=== PATIENT | male | born 1975 | race American Indian/Alaskan Native ===

== ENCOUNTER 2024-11-10 08:08 | Inpatient (IN) | payer BC, OTHER ==
[2024-11-10] MEDS ORDERED: Sodium Chloride 0.9% 10 ML Syringe FLUSH PRN (08:35)
[2024-11-10] MEDS ORDERED: Sodium Chloride 0.9% 2.5 ML Syringe FLUSH PRN (08:35)
[2024-11-10 09:04] LABS: HEMATOCRIT 39.2 % (42.0-52.0); HEMOGLOBIN 13.7 g/dL (14.0-18.0); MEAN CORPUSCULAR HEMOGLOBIN 31.4 pg (28.0-32.0); MEAN CORPUSCULAR HGB CONC 34.9 g/dL (32.0-36.0); MEAN CORPUSCULAR VOLUME 89.9 fL (83.0-99.0); MEAN PLATELET VOLUME 10.8 fL (9.4-12.4); PLATELET COUNT,PLT 305 K/uL (150-400); RED BLOOD CELL COUNT 4.36 M/uL (4.52-5.90); WHITE BLOOD CELL COUNT,WBC 23.58 K/uL (3.9-11.3)
[2024-11-10 09:09] LABS: PH,VENOUS 7.35 (7.31-7.41)
[2024-11-10] MEDS: ceFAZolin 2 GM in Sodium Chloride 0.9% 50 ML IV ONE (09:15)
[2024-11-10 09:35] LABS: LACTIC ACID 1.6 mmol/L (0.4-2.0)
[2024-11-10 09:39] LABS: A/G RATIO 0.2 (0.9-1.6); ALBUMIN 1.2 g/dL (3.4-5.0); BILIRUBIN TOTAL 0.6 mg/dL (0.2-1.0); CALCIUM 10.2 mg/dL (8.5-10.1); CARBON DIOXIDE,CO2 16.8 mmol/L (21.0-32.0); CREATININE 1.6 mg/dL (0.8-1.3); EST CRCL DRUG DOSING (CG) 63.12 mL/min; POTASSIUM,K 4.1 mmol/L (3.5-5.1); PROTEIN TOTAL,TP 6.8 g/dL (6.4-8.2)
[2024-11-10] MEDS: Insulin Regular in 0.9 % NACL 100 ML IV SCH (10:05)
[2024-11-10 10:26] LABS: BAND ABSOLUTE MAN 0.47; BAND PERCENT MAN 2 %; LYMPHOCYTES ABSOLUTE MAN 0.94 K/uL (1.00-4.80); LYMPHOCYTES PERCENT MAN 4 % (24-44); MONOCYTES ABSOLUTE MAN 1.65 K/uL (0.00-0.80); MONOCYTES PERCENT MAN 7 % (0-8); SEG NEUTROPHILS ABSOLUTE MAN 20.51 K/uL (1.80-7.70); SEG NEUTROPHILS PERCENT MAN 87 % (41-71)
[2024-11-10] MEDS ORDERED: Dextrose 5%-0.45% NaCl 1,000 ML IV PRN (11:21)
[2024-11-10] MEDS ORDERED: Sodium Chloride 0.9% 2,000 ML IV PRN (11:33)
[2024-11-10] MEDS ORDERED: Sennosides/Docusate Sodium 50-8.6 MG Tab PO PRN (11:44)
[2024-11-10] MEDS ORDERED: Polyethylene Glycol 3350 Powder 17 GM Packet PO PRN (11:44)
[2024-11-10] MEDS ORDERED: Melatonin 3 MG Tab PO PRN (11:44)
[2024-11-10] MEDS ORDERED: Ondansetron 4 MG/2 ML SDV IVPUSH PRN (11:44)
[2024-11-10] MEDS ORDERED: Insulin Regular in 0.9 % NACL 100 ML IV SCH (12:00)
[2024-11-10 12:37] LABS: HEMOGLOBIN A1C 11.3 %
[2024-11-10] MEDS: Sodium Chloride 0.9% 500 ML IV SCH (12:37)
[2024-11-10] MEDS: Pantoprazole 40 MG in Sodium Chloride 0.9% 10 ML IVPUSH SCH (12:38)
[2024-11-10] MEDS: Enoxaparin 40 MG/0.4 ML Syringe SUBCUT SCH (12:38)
[2024-11-10] MEDS: VANCOmycin 2 GM/400 ML 2 GM in Premix Bag 1 BAG IV ONE (12:39)
[2024-11-10 12:45] LABS: CALCIUM 9.7 mg/dL (8.5-10.1); CARBON DIOXIDE,CO2 22.4 mmol/L (21.0-32.0); CREATININE 1.5 mg/dL (0.8-1.3); EST CRCL DRUG DOSING (CG) 67.32 mL/min; MAGNESIUM 2.1 mg/dL (1.8-2.4); PHOSPHORUS 3.2 mg/dL (2.6-4.7); POTASSIUM,K 3.6 mmol/L (3.5-5.1)
[2024-11-10 16:04] LABS: CALCIUM 9.4 mg/dL (8.5-10.1); CARBON DIOXIDE,CO2 20.8 mmol/L (21.0-32.0); CREATININE 1.3 mg/dL (0.8-1.3); EST CRCL DRUG DOSING (CG) 77.68 mL/min; POTASSIUM,K 3.7 mmol/L (3.5-5.1)
[2024-11-10] MEDS: D5 1/2 NS w/ 40 mEq/L KCl 1,000 ML IV SCH (16:14)
[2024-11-10 16:41] LABS: APPEARANCE,URINE CLEAR; BILIRUBIN,URINE NEGATIVE (NEGATIVE); COLOR,URINE YELLOW; GLUCOSE,URINE 500 mg/dL (NEGATIVE); KETONES,URINE 15 mg/dL (NEGATIVE); LEUKOCYTE ESTERASE,URINE NEGATIVE (NEGATIVE); NITRITE,URINE NEGATIVE (NEGATIVE); OCCULT BLOOD,URINE MODERATE (NEGATIVE); PROTEIN,URINE 100 mg/dL (NEGATIVE); UROBILINOGEN,URINE 0.2 EU/dL (<2.0)
[2024-11-10 16:50] LABS: AMPHETAMINES SCREEN, URINE NEGATIVE (CUTOFF=500); BARBITURATE SCREEN,URINE NEGATIVE (CUTOFF=200); BENZODIAZEPINES SCREEN,URINE NEGATIVE (CUTOFF=150); BUPRENORPHINE SCREEN,URINE NEGATIVE (CUTOFF=10); METHADONE SCREEN, URINE NEGATIVE (CUTOFF=200); METHAMPHETAMINES SCREEN, URINE NEGATIVE (CUTOFF=500); OXYCODONE SCREEN,URINE NEGATIVE (CUT0FF=100); PCP SCREEN,URINE NEGATIVE (CUTOFF=25); THC SCREEN,URINE 20 NG/ML NEGATIVE (CUTOFF=50)
[2024-11-10 17:00] LABS: BACTERIA,URINE 2+ (NEGATIVE); EPITHELIAL CELLS,URINE FEW (NONE-FEW)
[2024-11-10] MEDS: ceFAZolin 2 GM in Sodium Chloride 0.9% 50 ML IV SCH (17:18)
[2024-11-10] MEDS: Lisinopril 10 MG Tab PO SCH (17:18)
[2024-11-10] MEDS ORDERED: Glucagon,Human Recombinant 1 MG Vial IM PRN (17:22)
[2024-11-10] MEDS ORDERED: 50% Dextrose in Water 50 ML Syringe IVPUSH PRN (17:22)
[2024-11-10] MEDS: Acetaminophen 325 MG Tab PO PRN (19:31)
[2024-11-10 20:04] LABS: CARBON DIOXIDE,CO2 20.7 mmol/L (21.0-32.0); CREATININE 1.4 mg/dL (0.8-1.3); EST CRCL DRUG DOSING (CG) 72.13 mL/min; POTASSIUM,K 3.7 mmol/L (3.5-5.1)
[2024-11-10] MEDS: Ibuprofen 600 MG Tab PO PRN (20:28)
[2024-11-10] MEDS: oxyCODONE 5 MG/5 ML Cup PO ONE (22:46)
[2024-11-10] MEDS: Insulin Glargine,Hum.Rec.Anlog 100 UNIT/ML 3 ML Pen SUBCUT SCH (22:59)
[2024-11-11] MEDS: VANCOmycin 1.5 GM in Sodium Chloride 0.9% 250 ML IV SCH
[2024-11-11 00:01] LABS: CALCIUM 9.1 mg/dL (8.5-10.1); CARBON DIOXIDE,CO2 23.6 mmol/L (21.0-32.0); CREATININE 1.5 mg/dL (0.8-1.3); EST CRCL DRUG DOSING (CG) 67.32 mL/min; POTASSIUM,K 3.3 mmol/L (3.5-5.1)
[2024-11-11] MEDS ORDERED: VANCOmycin 1 GM in Sodium Chloride 0.9% 250 ML IV SCH (01:00)
[2024-11-11 04:08] LABS: CALCIUM 8.8 mg/dL (8.5-10.1); CARBON DIOXIDE,CO2 21.5 mmol/L (21.0-32.0); CREATININE 1.5 mg/dL (0.8-1.3); EST CRCL DRUG DOSING (CG) 67.32 mL/min; POTASSIUM,K 3.6 mmol/L (3.5-5.1)
[2024-11-11 08:57] LABS: CALCIUM 8.9 mg/dL (8.5-10.1); CARBON DIOXIDE,CO2 20.6 mmol/L (21.0-32.0); CREATININE 1.3 mg/dL (0.8-1.3); EST CRCL DRUG DOSING (CG) 77.68 mL/min; POTASSIUM,K 3.8 mmol/L (3.5-5.1)
[2024-11-11 10:45] LABS: HEMATOCRIT 33.5 % (42.0-52.0); MEAN CORPUSCULAR HEMOGLOBIN 32.2 pg (28.0-32.0); MEAN CORPUSCULAR HGB CONC 35.8 g/dL (32.0-36.0); MEAN CORPUSCULAR VOLUME 89.8 fL (83.0-99.0); MEAN PLATELET VOLUME 11.1 fL (9.4-12.4); PLATELET COUNT,PLT 277 K/uL (150-400); RED BLOOD CELL COUNT 3.73 M/uL (4.52-5.90); WHITE BLOOD CELL COUNT,WBC 25.33 K/uL (3.9-11.3)
[2024-11-11] MEDS: Insulin Glargine,Hum.Rec.Anlog 100 UNIT/ML 3 ML Pen SUBCUT SCH (11:16)
[2024-11-11 11:25] LABS: BAND ABSOLUTE MAN 0.76; BAND PERCENT MAN 3 %; LYMPHOCYTES ABSOLUTE MAN 1.27 K/uL (1.00-4.80); LYMPHOCYTES PERCENT MAN 5 % (24-44); MONOCYTES ABSOLUTE MAN 2.03 K/uL (0.00-0.80); MONOCYTES PERCENT MAN 8 % (0-8); SEG NEUTROPHILS ABSOLUTE MAN 21.28 K/uL (1.80-7.70); SEG NEUTROPHILS PERCENT MAN 84 % (41-71)
[2024-11-11] MEDS: oxyCODONE 5 MG Tab PO PRN (11:27)
[2024-11-11] MEDS: Insulin Aspart 100 Units/ML 3 ML Pen SUBCUT SCH (13:33)
[2024-11-11 13:52] LABS: CALCIUM 8.9 mg/dL (8.5-10.1); CARBON DIOXIDE,CO2 21.5 mmol/L (21.0-32.0); CREATININE 1.3 mg/dL (0.8-1.3); EST CRCL DRUG DOSING (CG) 77.68 mL/min; POTASSIUM,K 4.2 mmol/L (3.5-5.1)
[2024-11-11] MEDS: VANCOmycin 1 GM in Sodium Chloride 0.9% 250 ML IV SCH (14:13)
[2024-11-11] MEDS: Insulin Glargine,Hum.Rec.Anlog 100 UNIT/ML 3 ML Pen SUBCUT ONE (20:55)
[2024-11-12 05:47] LABS: HEMATOCRIT 35.7 % (42.0-52.0); HEMOGLOBIN 12.3 g/dL (14.0-18.0); MEAN CORPUSCULAR HEMOGLOBIN 31.3 pg (28.0-32.0); MEAN CORPUSCULAR HGB CONC 34.5 g/dL (32.0-36.0); MEAN CORPUSCULAR VOLUME 90.8 fL (83.0-99.0); MEAN PLATELET VOLUME 11.2 fL (9.4-12.4); PLATELET COUNT,PLT 258 K/uL (150-400); RED BLOOD CELL COUNT 3.93 M/uL (4.52-5.90); WHITE BLOOD CELL COUNT,WBC 21.64 K/uL (3.9-11.3)
[2024-11-12 06:23] LABS: A/G RATIO 0.2 (0.9-1.6); BILIRUBIN TOTAL 0.4 mg/dL (0.2-1.0); CALCIUM 8.3 mg/dL (8.5-10.1); CARBON DIOXIDE,CO2 18.5 mmol/L (21.0-32.0); CREATININE 1.6 mg/dL (0.8-1.3); EST CRCL DRUG DOSING (CG) 63.12 mL/min; POTASSIUM,K 3.9 mmol/L (3.5-5.1); PROTEIN TOTAL,TP 6.2 g/dL (6.4-8.2)
[2024-11-12 06:44] LABS: BAND ABSOLUTE MAN 0.65; BAND PERCENT MAN 3 %; EOSINOPHILS ABSOLUTE MAN 0.22 K/uL (0.00-0.45); EOSINOPHILS PERCENT MAN 1 % (0-6); LYMPHOCYTES ABSOLUTE MAN 1.08 K/uL (1.00-4.80); LYMPHOCYTES PERCENT MAN 5 % (24-44); MONOCYTES ABSOLUTE MAN 1.95 K/uL (0.00-0.80); MONOCYTES PERCENT MAN 9 % (0-8); SEG NEUTROPHILS ABSOLUTE MAN 17.74 K/uL (1.80-7.70); SEG NEUTROPHILS PERCENT MAN 82 % (41-71)
[2024-11-12] MEDS: Benzonatate 100 MG Cap PO PRN (14:01)
[2024-11-12] MEDS: Ascorbic Acid 500 MG Tab PO SCH (14:05)
[2024-11-12] MEDS: Cholecalciferol (Vitamin D3) 25 MCG Tab PO SCH (14:05)
[2024-11-12] MEDS: Metoprolol Tartrate 5 MG/5 ML SDV IVPUSH ONE (16:45)
[2024-11-12] MEDS: Insulin Glargine,Hum.Rec.Anlog 100 UNIT/ML 3 ML Pen SUBCUT SCH (17:46)
[2024-11-12] MEDS: Sodium Chloride 0.9% 500 ML IV ONE (19:40)
[2024-11-12] MEDS: Potassium Chloride 10 MEQ in Premix Bag 1 BAG IV SCH (19:40)
[2024-11-12] MEDS: Sodium Chloride 0.9% 1,000 ML IV ONE (19:45)
[2024-11-12] MEDS ORDERED: 50% Dextrose in Water 50 ML Syringe IVPUSH PRN ×2 (20:09→20:22)
[2024-11-12] MEDS ORDERED: Glucagon,Human Recombinant 1 MG Vial IM PRN ×2 (20:09→20:22)
[2024-11-12] MEDS: Insulin Aspart 100 Units/ML 3 ML Pen SUBCUT ONE ×2 (20:20→20:56)
[2024-11-12 20:38] LABS: CALCIUM 7.9 mg/dL (8.5-10.1); CARBON DIOXIDE,CO2 17.2 mmol/L (21.0-32.0); CREATININE 1.6 mg/dL (0.8-1.3); EST CRCL DRUG DOSING (CG) 63.12 mL/min; POTASSIUM,K 4.4 mmol/L (3.5-5.1)
[2024-11-13 06:39] LABS: BASOPHILS ABSOLUTE AUTO 0.08 K/uL (0.00-0.20); BASOPHILS PERCENT AUTO 0.3 % (0.0-1.0); EOSINOPHILS ABSOLUTE AUTO 0.14 K/uL (0.00-0.45); EOSINOPHILS PERCENT AUTO 0.6 % (0.0-6.0); HEMATOCRIT 32.4 % (42.0-52.0); HEMOGLOBIN 11.3 g/dL (14.0-18.0); IMMATURE GRAN ABSOLUTE AUTO 0.33 K/uL (0.00-0.05); IMMATURE GRAN PERCENT AUTO 1.4 % (0.0-0.4); LYMPHOCYTES ABSOLUTE AUTO 1.09 K/uL (1.00-4.80); LYMPHOCYTES PERCENT AUTO 4.7 % (24.0-44.0); MEAN CORPUSCULAR HEMOGLOBIN 31.7 pg (28.0-32.0); MEAN CORPUSCULAR HGB CONC 34.9 g/dL (32.0-36.0); MEAN CORPUSCULAR VOLUME 90.8 fL (83.0-99.0); MEAN PLATELET VOLUME 10.9 fL (9.4-12.4); MONOCYTES ABSOLUTE AUTO 1.39 K/uL (0.00-0.80); NEUTROPHILS ABSOLUTE AUTO 20.26 K/uL (1.80-7.70); PLATELET COUNT,PLT 274 K/uL (150-400); RED BLOOD CELL COUNT 3.57 M/uL (4.52-5.90); WHITE BLOOD CELL COUNT,WBC 23.29 K/uL (3.9-11.3)
[2024-11-13 07:06] LABS: A/G RATIO 0.2 (0.9-1.6); BILIRUBIN TOTAL 0.4 mg/dL (0.2-1.0); CALCIUM 7.7 mg/dL (8.5-10.1); CARBON DIOXIDE,CO2 17.6 mmol/L (21.0-32.0); CREATININE 1.8 mg/dL (0.8-1.3); EST CRCL DRUG DOSING (CG) 56.1 mL/min; POTASSIUM,K 4.2 mmol/L (3.5-5.1); PROTEIN TOTAL,TP 6.2 g/dL (6.4-8.2)
[2024-11-13] MEDS: Insulin Aspart 100 Units/ML 3 ML Pen SUBCUT SCH ×2 (07:59→12:06)
[2024-11-13] MEDS: Piperacillin/Tazobactam 4.5 GM in Sodium Chloride 0.9% 100 ML IV SCH (11:02)
[2024-11-13] MEDS: Sodium Chloride 0.9% 1,000 ML IV SCH ×2 (11:07→19:54)
[2024-11-13 18:07] LABS: CALCIUM 7.5 mg/dL (8.5-10.1); CARBON DIOXIDE,CO2 15.7 mmol/L (21.0-32.0); CREATININE 1.8 mg/dL (0.8-1.3); EST CRCL DRUG DOSING (CG) 56.1 mL/min; POTASSIUM,K 4.2 mmol/L (3.5-5.1)
[2024-11-13] MEDS: Sodium Chloride 0.9% 1,000 ML IV ONE (18:49)
[2024-11-13 21:14] LABS: CALCIUM 7.4 mg/dL (8.5-10.1); CARBON DIOXIDE,CO2 16.5 mmol/L (21.0-32.0); CREATININE 1.7 mg/dL (0.8-1.3); EST CRCL DRUG DOSING (CG) 59.4 mL/min; MAGNESIUM 2.1 mg/dL (1.8-2.4); PHOSPHORUS 2.4 mg/dL (2.6-4.7)
[2024-11-13] MEDS: VANCOmycin 1 GM in Sodium Chloride 0.9% 250 ML IV SCH (21:59)
[2024-11-13] MEDS: Sodium Chloride 0.9% 1,000 ML IV STA (23:38)
[2024-11-14 06:29] LABS: BASOPHILS PERCENT AUTO 0.4 % (0.0-1.0); EOSINOPHILS ABSOLUTE AUTO 0.09 K/uL (0.00-0.45); EOSINOPHILS PERCENT AUTO 0.4 % (0.0-6.0); HEMATOCRIT 30.5 % (42.0-52.0); HEMOGLOBIN 10.6 g/dL (14.0-18.0); IMMATURE GRAN ABSOLUTE AUTO 0.37 K/uL (0.00-0.05); IMMATURE GRAN PERCENT AUTO 1.5 % (0.0-0.4); LYMPHOCYTES PERCENT AUTO 4.5 % (24.0-44.0); MEAN CORPUSCULAR HEMOGLOBIN 31.5 pg (28.0-32.0); MEAN CORPUSCULAR HGB CONC 34.8 g/dL (32.0-36.0); MEAN CORPUSCULAR VOLUME 90.5 fL (83.0-99.0); MEAN PLATELET VOLUME 11.2 fL (9.4-12.4); MONOCYTES ABSOLUTE AUTO 1.49 K/uL (0.00-0.80); NEUTROPHILS ABSOLUTE AUTO 21.54 K/uL (1.80-7.70); NEUTROPHILS PERCENT AUTO 87.2 % (41.0-71.0); PLATELET COUNT,PLT 302 K/uL (150-400); RED BLOOD CELL COUNT 3.37 M/uL (4.52-5.90); WHITE BLOOD CELL COUNT,WBC 24.69 K/uL (3.9-11.3)
[2024-11-14 07:03] LABS: A/G RATIO 0.2 (0.9-1.6); ALBUMIN 0.9 g/dL (3.4-5.0); BILIRUBIN TOTAL 0.4 mg/dL (0.2-1.0); CALCIUM 7.2 mg/dL (8.5-10.1); CARBON DIOXIDE,CO2 18.6 mmol/L (21.0-32.0); CREATININE 1.7 mg/dL (0.8-1.3); EST CRCL DRUG DOSING (CG) 59.4 mL/min; POTASSIUM,K 3.8 mmol/L (3.5-5.1); PROTEIN TOTAL,TP 5.9 g/dL (6.4-8.2)
[2024-11-14 10:33] LABS: AMPHETAMINES SCREEN, URINE NEGATIVE (CUTOFF=500); BARBITURATE SCREEN,URINE NEGATIVE (CUTOFF=200); BENZODIAZEPINES SCREEN,URINE NEGATIVE (CUTOFF=150); BUPRENORPHINE SCREEN,URINE NEGATIVE (CUTOFF=10); METHADONE SCREEN, URINE NEGATIVE (CUTOFF=200); METHAMPHETAMINES SCREEN, URINE NEGATIVE (CUTOFF=500); OXYCODONE SCREEN,URINE PRESUMPTIVE POSITIVE (CUT0FF=100); PCP SCREEN,URINE NEGATIVE (CUTOFF=25); THC SCREEN,URINE 20 NG/ML NEGATIVE (CUTOFF=50)
[2024-11-14] MEDS: Phosphorus #1 250 MG Tab PO SCH (11:00)
[2024-11-14 16:35] VITALS: BP 134/78; PULSE 95
== END 2024-11-14 15:41 | disposition home or self-care (01) | DRG 720 ==
LOC: MW.ED 08:08 → MW.ICU 11:09 → MW.MS 11-12 08:23
PROVIDERS: ADMIT Internal Medicine; ATTEND Internal Medicine
DX: A41.9 Sepsis, unspecified organism (principal); E10.10 Type 1 diabetes mellitus with ketoacidosis without coma; L03.114 Cellulitis of left upper limb; L03.115 Cellulitis of right lower limb; I10 Essential (primary) hypertension; L03.113 Cellulitis of right upper limb; S80.821A Blister (nonthermal), right lower leg, initial encounter; Z79.4 Long term (current) use of insulin; Z79.899 Other long term (current) drug therapy
CPT/HCPCS: 36415; 51798; 70450; 70450-26; 71045; 71045-26; 73700-26-RT; 73700-RT; 80048; 80053; 80202; 80305-QW; 80307; 81001; 82009; 82803; 82947; 83036; 83605; 83690; 83735; 83880; 84100; 84484; 85025; 87040; 87070; 87075; 87077; 87147; 87186; 87205; 87428-QW; 93005; 93010; 93970; 93970-26; 96361; 96365; 99285-25; 99291; A9270-GY; J0690; J1650; J1815; J1815-GY; J2470; J2543; J3371; J3372; J3480; J3490; J7030; J7040; J7050

== ENCOUNTER 2025-01-14 10:52 | Inpatient (IN) | payer BC, OTHER ==
[2025-01-14 11:46] LABS: BASOPHILS ABSOLUTE AUTO 0.08 K/uL (0.00-0.20); BASOPHILS PERCENT AUTO 0.6 % (0.0-1.0); EOSINOPHILS ABSOLUTE AUTO 0.37 K/uL (0.00-0.45); EOSINOPHILS PERCENT AUTO 2.9 % (0.0-6.0); HEMATOCRIT 25.7 % (42.0-52.0); HEMOGLOBIN 8.7 g/dL (14.0-18.0); IMMATURE GRAN ABSOLUTE AUTO 0.08 K/uL (0.00-0.05); IMMATURE GRAN PERCENT AUTO 0.6 % (0.0-0.4); LYMPHOCYTES ABSOLUTE AUTO 1.03 K/uL (1.00-4.80); MEAN CORPUSCULAR HEMOGLOBIN 30.5 pg (28.0-32.0); MEAN CORPUSCULAR HGB CONC 33.9 g/dL (32.0-36.0); MEAN CORPUSCULAR VOLUME 90.2 fL (83.0-99.0); MEAN PLATELET VOLUME 9.1 fL (9.4-12.4); MONOCYTES ABSOLUTE AUTO 1.21 K/uL (0.00-0.80); MONOCYTES PERCENT AUTO 9.4 % (0.0-8.0); NEUTROPHILS ABSOLUTE AUTO 10.06 K/uL (1.80-7.70); NEUTROPHILS PERCENT AUTO 78.5 % (41.0-71.0); NRBC ABSOLUTE 0.04 K/uL (0.00-0.02); NRBC PERCENT 0.3 /100WBC (0.0-0.2); PLATELET COUNT,PLT 296 K/uL (150-400); RED BLOOD CELL COUNT 2.85 M/uL (4.52-5.90); WHITE BLOOD CELL COUNT,WBC 12.83 K/uL (3.9-11.3)
[2025-01-14] MEDS: Sodium Chloride 0.9% 1,000 ML IV ONE (11:50)
[2025-01-14] MEDS: methylPREDNISolone Sodium Succinate 125 MG/2 ML SDV IVPUSH ONE (11:51)
[2025-01-14] MEDS: Albuterol/Ipratropium 3.0-0.5 MG/3 ML Neb Soln NEB ONE (11:51)
[2025-01-14 12:12] LABS: A/G RATIO 0.6 (0.9-1.6); ALBUMIN 2.8 g/dL (3.4-5.0); BILIRUBIN DIRECT 0.1 mg/dL (0.0-0.5); BILIRUBIN INDIRECT 0.3; BILIRUBIN TOTAL 0.4 mg/dL (0.2-1.0); CALCIUM 8.8 mg/dL (8.5-10.1); CARBON DIOXIDE,CO2 24.2 mmol/L (21.0-32.0); CREATININE 1.1 mg/dL (0.8-1.3); EST CRCL DRUG DOSING (CG) 90.8 mL/min; POTASSIUM,K 3.6 mmol/L (3.5-5.1); PROTEIN TOTAL,TP 7.6 g/dL (6.4-8.2)
[2025-01-14] MEDS: cefTRIAXone 2 GM in Sodium Chloride 0.9% 50 ML IV ONE (13:03)
[2025-01-14] MEDS: Azithromycin 500 MG in Sodium Chloride 0.9% 250 ML IV ONE (14:28)
[2025-01-14] MEDS ORDERED: 50% Dextrose in Water 50 ML Syringe IVPUSH PRN (16:08)
[2025-01-14] MEDS ORDERED: Acetaminophen 325 MG Tab PO PRN (16:08)
[2025-01-14] MEDS ORDERED: Glucagon,Human Recombinant 1 MG Vial IM PRN (16:08)
[2025-01-14] MEDS ORDERED: Polyethylene Glycol 3350 Powder 17 GM Packet PO PRN (16:08)
[2025-01-14] MEDS ORDERED: Ondansetron 4 MG Tab.DIS PO PRN (16:08)
[2025-01-14] MEDS ORDERED: Albuterol/Ipratropium 3.0-0.5 MG/3 ML Neb Soln NEB PRN (16:08)
[2025-01-14] MEDS: Insulin Aspart 100 Units/ML 3 ML Pen SUBCUT SCH (16:29)
[2025-01-14] MEDS: Enoxaparin 40 MG/0.4 ML Syringe SUBCUT SCH (16:29)
[2025-01-14 22:27] LABS: CORONAVIRUS COVID-19 NAA NEGATIVE (NEGATIVE); INFLUENZA A NAA NEGATIVE (NEGATIVE); INFLUENZA B NAA NEGATIVE (NEGATIVE); RESPIRATORY SYNCYTIAL VIR NAA NEGATIVE (NEGATIVE)
[2025-01-15 05:07] VITALS: BP 178/89
[2025-01-15 06:04] LABS: BASOPHILS ABSOLUTE AUTO 0.02 K/uL (0.00-0.20); BASOPHILS PERCENT AUTO 0.2 % (0.0-1.0); EOSINOPHILS ABSOLUTE AUTO 0.01 K/uL (0.00-0.45); EOSINOPHILS PERCENT AUTO 0.1 % (0.0-6.0); HEMATOCRIT 26.5 % (42.0-52.0); HEMOGLOBIN 8.9 g/dL (14.0-18.0); IMMATURE GRAN ABSOLUTE AUTO 0.09 K/uL (0.00-0.05); IMMATURE GRAN PERCENT AUTO 0.8 % (0.0-0.4); LYMPHOCYTES ABSOLUTE AUTO 0.73 K/uL (1.00-4.80); LYMPHOCYTES PERCENT AUTO 6.4 % (24.0-44.0); MEAN CORPUSCULAR HGB CONC 33.6 g/dL (32.0-36.0); MEAN CORPUSCULAR VOLUME 89.2 fL (83.0-99.0); MEAN PLATELET VOLUME 8.8 fL (9.4-12.4); MONOCYTES ABSOLUTE AUTO 0.43 K/uL (0.00-0.80); MONOCYTES PERCENT AUTO 3.8 % (0.0-8.0); NEUTROPHILS ABSOLUTE AUTO 10.15 K/uL (1.80-7.70); NEUTROPHILS PERCENT AUTO 88.7 % (41.0-71.0); NRBC ABSOLUTE 0.04 K/uL (0.00-0.02); NRBC PERCENT 0.3 /100WBC (0.0-0.2); PLATELET COUNT,PLT 305 K/uL (150-400); RED BLOOD CELL COUNT 2.97 M/uL (4.52-5.90); WHITE BLOOD CELL COUNT,WBC 11.43 K/uL (3.9-11.3)
[2025-01-15 06:34] LABS: A/G RATIO 0.5 (0.9-1.6); ALBUMIN 2.5 g/dL (3.4-5.0); BILIRUBIN TOTAL 0.3 mg/dL (0.2-1.0); CALCIUM 8.8 mg/dL (8.5-10.1); CARBON DIOXIDE,CO2 23.8 mmol/L (21.0-32.0); CREATININE 1.4 mg/dL (0.8-1.3); EST CRCL DRUG DOSING (CG) 71.34 mL/min; MAGNESIUM 2.2 mg/dL (1.8-2.4); POTASSIUM,K 3.9 mmol/L (3.5-5.1); PROTEIN TOTAL,TP 7.3 g/dL (6.4-8.2)
[2025-01-15] MEDS ORDERED: Insulin Glargine,Human Rec. Analog 100 Units/ML 3 ML Pen SUBCUT SCH (07:30)
[2025-01-15] MEDS: Pantoprazole 40 MG Tab.CR PO SCH (08:04)
[2025-01-15 10:25] VITALS: PULSE 96
[2025-01-15] MEDS ORDERED: cefTRIAXone 2 GM in Sodium Chloride 0.9% 100 ML IV SCH (13:00)
[2025-01-15] MEDS ORDERED: Azithromycin 500 MG in Sodium Chloride 0.9% 250 ML IV SCH (14:00)
[2025-01-15 22:03] LABS: BORDETELLA PARAPERT IS1001 Not Detected (Not Detected)
== END 2025-01-15 10:20 | disposition home or self-care (01) | DRG 139 ==
LOC: MW.ED 10:52 → MW.MS 12:59
PROVIDERS: ADMIT Internal Medicine; ATTEND Internal Medicine
DX: J18.9 Pneumonia, unspecified organism (principal); I10 Essential (primary) hypertension; F17.210 Nicotine dependence, cigarettes, uncomplicated; E10.9 Type 1 diabetes mellitus without complications; E10.628 Type 1 diabetes mellitus with other skin complications
CPT/HCPCS: 0241U; 36415; 71045; 71045-26; 80048; 80053; 80076; 82947; 83605; 83735; 83880; 84484; 85025; 87040; 87486; 87581; 87633; 87641; 93005; 93010; 94640; 96361; 96374; 99285; 99285-25; A9270-GY; J0456; J0696; J1650; J1815-GY; J2919; J7030; J7050

== ENCOUNTER 2025-01-21 15:26 | Emergency (ER) | payer BC, OTHER ==
[2025-01-21 15:42] VITALS: BP 146/70
[2025-01-21 15:57] LABS: PH,VENOUS 7.37 (7.32-7.43)
[2025-01-21 15:59] LABS: HEMATOCRIT 26.6 % (42.0-52.0); HEMOGLOBIN 8.7 g/dL (14.0-18.0); MEAN CORPUSCULAR HEMOGLOBIN 29.2 pg (28.0-32.0); MEAN CORPUSCULAR HGB CONC 32.7 g/dL (32.0-36.0); MEAN CORPUSCULAR VOLUME 89.3 fL (83.0-99.0); MEAN PLATELET VOLUME 9.1 fL (9.4-12.4); PLATELET COUNT,PLT 607 K/uL (150-400); RED BLOOD CELL COUNT 2.98 M/uL (4.52-5.90); WHITE BLOOD CELL COUNT,WBC 23.36 K/uL (3.9-11.3)
[2025-01-21 16:18] LABS: A/G RATIO 0.4 (0.9-1.6); BILIRUBIN TOTAL 0.3 mg/dL (0.2-1.0); CALCIUM 8.6 mg/dL (8.5-10.1); CARBON DIOXIDE,CO2 25.6 mmol/L (21.0-32.0); CREATININE 1.4 mg/dL (0.8-1.3); EST CRCL DRUG DOSING (CG) 69.29 mL/min; POTASSIUM,K 3.2 mmol/L (3.5-5.1); PROTEIN TOTAL,TP 6.7 g/dL (6.4-8.2)
[2025-01-21 16:19] LABS: LACTIC ACID 1.1 mmol/L (0.4-2.0)
[2025-01-21 16:26] LABS: SEG NEUTROPHILS ABSOLUTE MAN 19.86 K/uL (1.80-7.70); SEG NEUTROPHILS PERCENT MAN 85 % (41-71)
[2025-01-21 16:27] LABS: EOSINOPHILS ABSOLUTE MAN 0.47 K/uL (0.00-0.45); EOSINOPHILS PERCENT MAN 2 % (0-6); LYMPHOCYTES ABSOLUTE MAN 1.17 K/uL (1.00-4.80); LYMPHOCYTES PERCENT MAN 5 % (24-44); MONOCYTES ABSOLUTE MAN 1.87 K/uL (0.00-0.80); MONOCYTES PERCENT MAN 8 % (0-8)
[2025-01-21 16:37] LABS: CORONAVIRUS COVID-19 NAA NEGATIVE (NEGATIVE); INFLUENZA A NAA NEGATIVE (NEGATIVE); INFLUENZA B NAA NEGATIVE (NEGATIVE)
[2025-01-21] MEDS: Albuterol/Ipratropium 3.0-0.5 MG/3 ML Neb Soln NEB ONE (16:55)
[2025-01-21 17:29] VITALS: PULSE 85
[2025-01-21] MEDS: Iopamidol 755 Mg/ML 100 ML Bottle IVPUSH STA (18:57)
[2025-01-21] MEDS: Sodium Chloride 0.9% 250 ML IV ONE (19:09)
[2025-01-21] MEDS: Potassium Chloride 10 MEQ in Premix Bag 1 BAG IV SCH (19:09)
[2025-01-21] MEDS: Lidocaine 4% Patch TOP ONE (19:19)
[2025-01-21] MEDS: VANCOmycin 2 GM/400 ML 2 GM in Premix Bag 1 BAG IV ONE (19:44)
[2025-01-21] MEDS: LORazepam 2 MG/ML SDV IVPUSH ONE (21:46)
== END 2025-01-21 22:50 ==
LOC: MW.ED 15:26
DX: J18.9 Pneumonia, unspecified organism (principal); J86.9 Pyothorax without fistula; J90 Pleural effusion, not elsewhere classified; I10 Essential (primary) hypertension; E10.9 Type 1 diabetes mellitus without complications; Z79.899 Other long term (current) drug therapy
CPT/HCPCS: 0240U; 36415; 71045; 71250; 71275; 80053; 82803; 83605; 84484; 85025; 87040; 94640; 96365; 96366; 96367; 96368; 96375; 99285; A9270; J0457; J2060; J3372; J3480; J7620; Q9967; 99284